=== PATIENT | female | born 1935 | race Caucasian/White ===

== ENCOUNTER 2017-04-15 08:54 | Inpatient (IN) | payer OTHER ==
[2017-03-21 12:29] VITALS: BMI 40.0
--- NOTE | 2017-03-21 13:20 | PAT Medication Instructions ---
Service Date Mar 21, 2017. Current Home Medication List Acetaminophen (Tylenol), 1,000 MG PO PRN Allopurinol (Zyloprim), 100 MG PO QAM Aspirin (Aspirin Ec), 81 MG PO QAM Cholecalciferol (Vitamin D3), 5,000 UNITS PO QAM Fexofenadine Hcl (Leticia Allergy), 1 TAB PO PRN Fluticasone Propionate (Nasal) (Flonase Allergy Relief), 2 SPRAYS AMOS BID Loperamide Hcl (Imodium), 2 MG PO PRN Magnesium Oxide (Mag-Ox), 400 MG PO QAM Metoprolol Succinate (Toprol Xl), 25 MG PO BID Mirtazapine Soltab (Remeron Soltab), 45 MG PO HS Multivitamin (Multivitamin), 1 TAB PO QAM Ocuvite Preservision (Ocuvite Preservision), 1 TAB PO QAM Pantoprazole (Protonix), 40 MG PO QAM Quetiapine Fumarate Xr (Seroquel Xr), 200 MG PO HS Sertraline (Zoloft), 150 MG PO QAM Trandolapril (Mavik), 4 MG PO BID Verapamil Sust Rel (Calan Sr Ext Rel), 240 MG PO QAM Zolpidem Tartrate (Ambien), 10 MG PO HS [Iron], 1 TAB PO QAM Medication Instructions For Your Scheduled Surgery - Hold the following medications the morning of surgery: [Iron], 1 TAB PO QAM Multivitamin (Multivitamin), 1 TAB PO QAM Ocuvite Preservision (Ocuvite Preservision), 1 TAB PO QAM Loperamide Hcl (Imodium), 2 MG PO PRN Magnesium Oxide (Mag-Ox), 400 MG PO QAM Cholecalciferol (Vitamin D3), 5,000 UNITS PO QAM Fexofenadine Hcl (Leticia Allergy), 1 TAB PO PRN Trandolapril (Mavik), 4 MG PO BID - Take the following medications the morning of surgery with a sip of water: Verapamil Sust Rel (Calan Sr Ext Rel), 240 MG PO QAM Sertraline (Zoloft), 150 MG PO QAM Pantoprazole (Protonix), 40 MG PO QAM Metoprolol Succinate (Toprol Xl), 25 MG PO BID Fluticasone Propionate (Nasal) (Flonase Allergy Relief), 2 SPRAYS AMOS BID Acetaminophen (Tylenol), 1,000 MG PO PRN (if needed) Allopurinol (Zyloprim), 100 MG PO QAM Aspirin (Aspirin Ec), 81 MG PO QAM - Hold the following medications as scheduled the night before surgery: Trandolapril (Mavik), 4 MG PO BID - Take the following medications as scheduled the night before surgery: Zolpidem Tartrate (Ambien), 10 MG PO HS Quetiapine Fumarate Xr (Seroquel Xr), 200 MG PO HS Mirtazapine Soltab (Remeron Soltab), 45 MG PO HS. Metoprolol Succinate (Toprol Xl), 25 MG PO BID Loperamide Hcl (Imodium), 2 MG PO PRN (if needed) Fluticasone Propionate (Nasal) (Flonase Allergy Relief), 2 SPRAYS AMOS BID Acetaminophen (Tylenol), 1,000 MG PO PRN (if needed) If you have any questions please call us at [phone] or [phone] or [phone]
[2017-03-21 14:48] LABS: BASO % 0.5 %; BASO ABS # 0.04 K/uL (0-0.2); COMPLETE YES; EOS % 5.2 %; HEMATOCRIT 35.8 % (37-47); IG% 0.1 %; LYMPH ABS # 3.12 K/uL (1.2-3.4); MEAN CELL VOLUME 86.1 fL (80-100); MEAN CORPUSCULAR HEMOGLOBIN 29.3 pg (25-34); MEAN CORPUSCULAR HGB CONC 34.1 g/dl (32-36); MEAN PLATELET VOLUME 8.6 fL (7.4-10.4); MONO % 9.6 %; NEUT % 42.6 %; PLATELET COUNT 184 K/uL (130-400); RED BLOOD COUNT 4.16 M/uL (4.2-5.4); WHITE BLOOD COUNT 7.43 K/uL (4.8-10.8)
[2017-03-21 15:05] LABS: BUN/CREATININE RATIO 36.7 (10-20); POTASSIUM 4.7 mmol/L (3.5-5.1)
[2017-03-21 15:24] LABS: URINE APPEARANCE CLEAR (CLEAR); URINE BILIRUBIN NEG (NEG); URINE COLOR YELLOW; URINE NITRITE NEG (NEG); URINE SPECIFIC GRAVITY 1.025 (1.000-1.030); UROBILINOGEN NEG (NEG); ZZUR CULT IF INDIC CLEAN CATCH NO
[2017-03-21 15:36] LABS: MANUAL MICROSCOPIC REQUIRED? NO; REVIEW REQ? NO
[2017-04-15] VITALS (8 sets, daily range): BP systolic 131–177; BP diastolic 54–93; PULSE 63–72; TEMP 36.4–36.7; O2SAT 95–98; Ht 162.6 cm; Wt 107.3 kg
[~2017-04-15] VITALS: Ht 162.6 cm; Wt 107.3 kg
[~2017-04-15 08:54] MED LIST: ACET-1256 PO; ALLO100T PO; ASPI81TA28 PO; CEFAZOLIN 2000 MG/60 ML D5W 60 ML IV SCH; CHOL1000 PO; FEXO1TAB49 PO; FLUT0.15 NAE; IMD/2 PO; IRON PO; LACTATED RINGER'S 1000ML 1,000 ML IV SCH; MAGN400T6 PO; METO25TA3 PO; MIRT15TA2 PO; MULT-190 PO; MULT-506 PO; PANT40TA PO; QUET200T2 PO; SERT50TA PO; TRAN4TAB11 PO; VERA240T20 PO; ZOLP10TA PO
[2017-04-15] MEDS ORDERED: MoRPHine SULFATE 10 MG/ML CARP/VIAL IV PRN (09:45)
[2017-04-15] MEDS ORDERED: NALOXONE HCL 0.4 MG/1 ML VIAL/CARP IV PRN ×3 (09:45→13:45)
[2017-04-15] MEDS ORDERED: FLUMAZENIL 0.1 MG/1 ML 10 ML VIAL IV PRN (09:45)
[2017-04-15] MEDS ORDERED: ATROPINE SULFATE 0.1 MG/ML 5ML SYR IV PRN (09:45)
[2017-04-15] MEDS ORDERED: ONDANSETRON INJ 2 MG/ML 2 ML VIAL IV PRN ×2 (09:45→13:45)
[2017-04-15] MEDS ORDERED: PHENYLEPHRINE 100MCG/ML 5ML SYR IV PRN (09:45)
[2017-04-15] MEDS ORDERED: LABETALOL HCL IV 5 MG/ML 20ML IV PRN (09:45)
[2017-04-15] MEDS ORDERED: MEPERIDINE HCL 25 MG/ML CARP IV PRN (09:45)
[2017-04-15] MEDS ORDERED: EpHEDrine SULFATE INJ 50 MG/ML AMP IV PRN (09:45)
--- NOTE | 2017-04-15 11:10 | History & Physical Bridge Note ---
H&P Re-Evaluation Bridge Note: I have examined the patient, reviewed the History & Physical and in the interval since the performance of the History & Physical I have noted the following changes of clinical significance: No changes noted
--- NOTE | 2017-04-15 11:11 | History and Physical ---
History & Physical Date Apr 15, 2017. Chief Complaint Back and leg pain History of Present Illness The patient is a 81 year old female with complaints of chronic back and leg pain Additional History Hepatic Disease: No Endocrine Disorder: No Kidney Disease: No Hypertension: Yes Heart Disease: No Bleeding Tendencies: No Infectious Diseases: No Allergies Coded Allergies: Influenza Vaccines (Verified Allergy, Unknown, PRICKLING FINGERS, 04/15/17) Paroxetine (Verified Allergy, Unknown, FACE AND EARS BURNED, 03/21/17) Penicillins (Verified Allergy, Unknown, PENICILLIN/AMOXICILLIN-DIARRHEA, ) Pregabalin (Verified Allergy, Unknown, DEPRESSION, 03/21/17) Statins (Verified Allergy, Unknown, MUSCLE ACHES, 03/21/17) Sulfa Drugs (Verified Allergy, Unknown, BACTRIM-THROAT AND TONGUE SWELLING , 03/21/17) Unclassified Drugs (Verified Allergy, Unknown, MUSCLE RELAXANT-NAME? IMPAIRED KIDNEY FUNCTION PER PT, 03/21/17) 09/2016 AFTER HIP [facility] Home Medications Scheduled Acetaminophen (Tylenol), 1,000 MG PO PRN Allopurinol (Zyloprim), 100 MG PO QAM Aspirin (Aspirin Ec), 81 MG PO QAM Cholecalciferol (Vitamin D3), 5,000 UNITS PO QAM Fexofenadine Hcl (Leticia Allergy), 1 TAB PO PRN Fluticasone Propionate (Nasal) (Flonase Allergy Relief), 2 SPRAYS AMOS BID Loperamide Hcl (Imodium), 2 MG PO PRN Magnesium Oxide (Mag-Ox), 400 MG PO QAM Metoprolol Succinate (Toprol Xl), 25 MG PO BID Mirtazapine Soltab (Remeron Soltab), 45 MG PO HS Multivitamin (Multivitamin), 1 TAB PO QAM Ocuvite Preservision (Ocuvite Preservision), 1 TAB PO QAM Pantoprazole (Protonix), 40 MG PO QAM Quetiapine Fumarate Xr (Seroquel Xr), 200 MG PO HS Sertraline (Zoloft), 150 MG PO QAM Trandolapril (Mavik), 4 MG PO BID Verapamil Sust Rel (Calan Sr Ext Rel), 240 MG PO QAM Zolpidem Tartrate (Ambien), 10 MG PO HS [Iron], 1 TAB PO QAM Physical Examination Skin: warm/dry, no rash Eyes: normal inspection, EOMI, sclerae normal ENT: normal ENT inspection, pharynx normal Head: normocephalic, atraumatic Neck: supple, no adenopathy, trachea midline Respiratory/Chest: lungs clear, normal breath sounds, no respiratory distress Cardiovascular: regular rate, rhythm, no edema, no murmur Abdomen / GI: normal bowel sounds, non tender Back: normal inspection Extremities: normal inspection, normal range of motion Neurologic/Psych: no motor/sensory deficits, alert, normal reflexes, oriented x 3 Diagnosis Lumbar spinal stenosis Plan of Treatment Lumbar decompression and fusion L4 5 L5-S1
[2017-04-15] MEDS ORDERED: FENTANYL CITRATE INJ 50 MCG/1 ML 2 ML VIAL ONE ×4 (11:15→14:01)
[2017-04-15] MEDS ORDERED: BACITRACIN 50000 UNIT VIAL ONE (11:44)
[2017-04-15] MEDS ORDERED: BUPIVACAINE/EPINEPHRINE 0.5% MPF 1:200,000 30 ML VIAL ONE (11:44)
[2017-04-15] MEDS ORDERED: HYDROmorphone INJ 2 MG/ML SYR/VIAL ONE ×2 (12:15→13:48)
[2017-04-15] MEDS ORDERED: ALBUMIN HUMAN 5% 12.5 GM/250 ML VIAL IV ONE (13:26)
[2017-04-15] MEDS ORDERED: FLOSEAL HEMOSTATIC MATRIX 10ML TOP ONE (13:34)
[2017-04-15] MEDS ORDERED: SODIUM CHLORIDE 0.9% 1000ML 1,000 ML IV SCH (13:43)
[2017-04-15] MEDS ORDERED: DO NOT ADMINISTER PNEUMOCOCCAL VACCINE PRN ×2 (13:45)
[2017-04-15] MEDS ORDERED: DO NOT ADMINISTER FLU VACCINE PRN ×3 (13:45)
[2017-04-15] MEDS ORDERED: FAMOTIDINE 20 MG TAB PO PRN (13:45)
[2017-04-15] MEDS ORDERED: BISACODYL 10 MG SUPP PR PRN (13:45)
[2017-04-15] MEDS ORDERED: LORAZEPAM INJ 0.5 MG in SYRINGE 0.75 ML IV PRN (13:45)
[2017-04-15] MEDS ORDERED: ACETAMINOPHEN 500 MG TAB PO PRN (13:45)
[2017-04-15] MEDS ORDERED: PROMETHAZINE HCL INJ 12.5 MG in SODIUM CHLORIDE 0.9% 50ML 50 ML IV PRN (13:45)
[2017-04-15] MEDS ORDERED: ALUMINUM/MAGNESIUM SUSP 30 ML UDC PO PRN (13:45)
[2017-04-15] MEDS ORDERED: MAGNESIUM HYDROXIDE SUSP 30 ML UDC PO PRN (13:45)
[2017-04-15] MEDS ORDERED: SOD PHOSPHATE/SOD BIPHOSPHATE ENEMA 132 ML BTL PR PRN (13:45)
[2017-04-15] MEDS ORDERED: METOCLOPRAMIDE HCL INJ 5 MG/ML 2 ML VIAL IV PRN (13:45)
[2017-04-15] MEDS ORDERED: ACETAMINOPHEN IV 100 ML IV PRN (13:45)
[2017-04-15] MEDS ORDERED: hydrOXYzine HCL 25 MG TAB PO PRN (13:45)
[2017-04-15] MEDS ORDERED: PROPOFOL IV EMULSION 10 MG/ML 20 ML VIAL IV ONE (13:48)
[2017-04-15] MEDS ORDERED: LIDOCAINE HCL 2% 2 ML VIAL (20MG/ML) ONE (13:48)
[2017-04-15] MEDS ORDERED: ROCURONIUM BROMIDE 10 MG/ML 5 ML VIAL IV ONE (13:48)
[2017-04-15] MEDS ORDERED: EpHEDrine SULFATE 50MG/5ML SYR ONE (13:51)
[2017-04-15] MEDS ORDERED: GLYCOPYRROLATE INJ 0.2 MG/ML VIAL ONE (13:51)
[2017-04-15] MEDS ORDERED: EpHEDrine SULFATE INJ 50 MG/ML AMP ONE (13:51)
[2017-04-15] MEDS ORDERED: ONDANSETRON INJ 2 MG/ML 2 ML VIAL ONE (13:51)
[2017-04-15] MEDS ORDERED: NEOSTIGMINE METHYLSULFATE 1 MG/ML 10ML VIAL ONE (13:51)
[2017-04-15] MEDS ORDERED: DEXAMETHASONE SOD INJ 4 MG/ML VIAL ONE (13:51)
--- NOTE | 2017-04-15 13:51 | [facility] Operative Report ---
Operative Report Operative Date Apr 15, 2017. Pre-Operative Diagnosis Lumbar Spinal Stenosis Post-Operative Diagnosis Lumbar Spinal Stenosis. Procedure(s) Performed #1 revision decompression medial facetectomy foraminotomies L3 4 L4 5 L5-S1. #2 posterior spinal fusion L4 5 L5-S1. #3 posterior instrumentation L4 5 L5-S1. #4 placement of locally harvested morcellized autograft in the posterior lateral gutters. #5 casement of ostial amp in the posterior lateral gutters. Surgeon Internal Recruiter Surgeon(s) Fariba Thompson PA-C Estimated Blood Loss 650 ml Findings Severe spinal stenosis Specimens None per surgeon Description of Procedure Patient was met with preoperatively case discussed all questions are dressed. After informed consent patient was taken to the operative suite and intubated and placed in a prone position on the Ap table on top Nicholas frame. All bony prominences and eyes well-padded ensure there is no external pressure. Lumbar spines and prepped and draped nostril fashion. Sharp dissection with the assistance of Bovie cautery was performed onto an exposing the remaining lamina and transverse processes of L45 and the sacral alar bilaterally. From a caudal to cephalad fashion revision complete laminectomy of L5 L4 and partial laminectomy of L3 was performed addressing severe lateral recess and foraminal stenosis. After this complete pedicle screws were placed in L4-L5 and S1 levels bilaterally with the assistance of fluoroscopy. The purposes jacob locked in position. The transverse processes of L4-L5 and sacral alar were then burred to subcortical bleeding bone. Ostial amp local harvested morcellized autograft was placed in the posterior gutters. 15 round STUART drain inserted. Incision was closed with 1 Vicryl fascia 2-0 Vicryl subcutaneously and 4 Monocryl for final skin closure. Steri-Strips sterile dressing placed. Patient we can taken to PACU stable condition. Please note Fariba Mcintyre was present at the entire procedure involved in patient positioning complex portions of surgery and final skin closure. I attest to the content of the Intraoperative Record and any orders documented therein. Any exceptions are noted below.
[2017-04-15 13:52] LABS: HEMATOCRIT 30.9 % (37-47)
[2017-04-15] MEDS ORDERED: METOPROLOL TARTRATE 1 MG/ML VIAL ONE (13:52)
[2017-04-15] MEDS ORDERED: LABETALOL HCL IV 5 MG/ML 20ML IV ONE (14:10)
[2017-04-15] MEDS ORDERED: HYDROmorphone HCL 0.5MG/ML 50 ML CASSETTE ONE (14:20)
[2017-04-15] MEDS: HYDROmorphone INJ 1 MG/ML SYR IV PRN ×2 (14:25→14:30)
--- NOTE | 2017-04-15 14:41 | DIAGNOSTIC IMAGING REPORT ---
Radiology LUMBAR SPINE 2 OR 3 VIEW CLINICAL HISTORY: 81 years-old Female presenting with L4-S1 DECOMPRESSION/FUSION. TECHNIQUE: 2 fluoroscopic spot image(s) obtained as part of an intraoperative procedure. COMPARISON: None. FINDINGS/IMPRESSION: Posterior transpedicular screw and jacob fixation of L4-S1. Grossly normal anatomic alignment. Please see surgical report for further details. Fluoroscopy dosage (mGy): Not available. Fluoroscopy time: 19 seconds. Number of fluoroscopic spot images: 2. Electronically signed by: Andrei Adrian M.D. 04/15/2017 2:40 PM Dictated Date/Time: 04/15/2017 2:39 PM
--- NOTE | 2017-04-15 14:49 | Anesthesiology Progress Note ---
Anesthesia Post Op Note Date & Time Apr 15, 2017 at 14:48 Vital Signs Pain Intensity: 3 Vital Signs Past 12 Hours Date Time Temp Pulse Resp B/P (MAP) Pulse Ox O2 Delivery O2 Flow Rate FiO2 04/15/17 14:10 37.2 77 16 157/77 99 Oxymask 10 04/15/17 09:05 36.4 71 20 177/93 04/15/17 09:05 97 Room Air Notes Mental Status: alert / awake / arousable, participated in evaluation Pt Amnestic to Procedure: Yes Nausea / Vomiting: adequately controlled Pain: adequately controlled Airway Patency, RR, SpO2: stable & adequate BP & HR: stable & adequate Hydration State: stable & adequate Anesthetic Complications: no major complications apparent The patient did well. She is awake and treating her pain with an IV COAL HAULER OPERATOR. Her vitals are all stable. Her postop hgb is 9.9. Dr. Snyder is aware and will follow her overnight.
[2017-04-15] MEDS: SODIUM CHLORIDE 0.9% 1000ML 1,000 ML IV SCH ×2 (15:45→20:11)
[2017-04-15] MEDS: HYDROmorphone HCL 0.5MG/ML 50 ML CASSETTE IV PRN ×2 (16:27→23:23)
[2017-04-15] MEDS: CEFAZOLIN IV 2,000 MG in DEXTROSE 5% 50ML 50 ML IV SCH (20:08)
[2017-04-15] MEDS: DOCUSATE SODIUM/SENNA 50/8.6MG TAB PO SCH (21:00)
[2017-04-15] MEDS: ZOLPIDEM TARTRATE 10 MG TAB PO SCH (21:00)
[2017-04-15] MEDS: FLUTICASONE PROPIONATE NA SPR 16 GM BTL NAE SCH (21:39)
[2017-04-15] MEDS: METOPROLOL SUCC 25MG EXT REL TAB PO SCH (21:42)
[2017-04-15] MEDS: DEXAMETHASONE INJ 6 MG in SYRINGE 0 ML IV SCH (21:43)
[2017-04-15] MEDS: QUETIAPINE FUMARATE 200 MG TABCR PO SCH (21:43)
[2017-04-16] VITALS (7 sets, daily range): BP systolic 112–159; BP diastolic 61–70; PULSE 70–88; TEMP 36.4–37.1; O2SAT 92–97
[2017-04-16] MEDS: SODIUM CHLORIDE 0.9% 1000ML 1,000 ML IV SCH (02:35)
[2017-04-16] MEDS: CEFAZOLIN IV 2,000 MG in DEXTROSE 5% 50ML 50 ML IV SCH (04:00)
[2017-04-16] MEDS: DEXAMETHASONE INJ 6 MG in SYRINGE 0 ML IV SCH ×2 (05:30→14:19)
[2017-04-16 05:55] LABS: BASO % 0.1 %; BASO ABS # 0.01 K/uL (0-0.2); COMPLETE YES; HEMATOCRIT 27.9 % (37-47); IG% 0.3 %; LYMPH % 13.9 %; LYMPH ABS # 1.51 K/uL (1.2-3.4); MEAN CELL VOLUME 86.6 fL (80-100); MEAN CORPUSCULAR HEMOGLOBIN 28.9 pg (25-34); MEAN CORPUSCULAR HGB CONC 33.3 g/dl (32-36); MEAN PLATELET VOLUME 8.4 fL (7.4-10.4); MONO % 7.8 %; NEUT % 77.9 %; PLATELET COUNT 155 K/uL (130-400); RED BLOOD COUNT 3.22 M/uL (4.2-5.4); WHITE BLOOD COUNT 10.87 K/uL (4.8-10.8)
[2017-04-16] MEDS ORDERED: DC PCA ONE (06:00)
[2017-04-16] MEDS ORDERED: HYDROmorphone INJ 0.5 MG/0.5 ML SYR IV PRN (06:00)
[2017-04-16] MEDS ORDERED: NURSING VERBAL MED ORDER ONE ×2 (06:15→08:15)
[2017-04-16 06:29] LABS: BUN/CREATININE RATIO 23.4 (10-20); CALCIUM 7.9 mg/dl (8.5-10.1); CREATININE 1.1 mg/dl (0.60-1.20); POTASSIUM 4.9 mmol/L (3.5-5.1)
--- NOTE | 2017-04-16 08:03 | Clinical Documentation Query ---
KULDEEP Perez : CLINICAL DOCUMENTATION QUERIES QUERY 1 OF 3 Patient is a 81 year old female admitted for elective lumbosacral decompression and fusion. Preoperative hemoglobin and hematocrit were 12.2 g/dl and 35.8%. POD #1, repeat values are 9.3 g/dl and 27.9%. EBL for the procedure was 650 ml's with subsequently documented losses totaling an additional 47i0 ml's to date. Additionally, net I/O is positive for 2,793 ml's as of this a.m. She is being monitored with serial hematology and I/O including drain outputs. In your clinical opinion is this patient being managed for: ( ) Acute blood loss and hemodilutional anemia ( ) Not Agree ( ) Other explanation of clinical findings (Please Explain) ( ) Unable to determine (Please Define) ( ) Need to Discuss The medical record reflects the following clinical findings, treatment, and risk factors. Clinical Indicators: As above Treatment: She is being monitored with serial hematology and I/O including drain outputs. Risk Factors: Surgery, perioperative blood losses. QUERY 2 OF 3 BMI noted to be 40.6 kg/m*m. In order for this clinical data to be captured by the commercial lines manager, an associated clinical diagnosis must exist within the medical record. Please clarify as clinically appropriate. Thank you. In your clinical opinion is your patient: ( ) Morbidly obese, BMI 40.6 kg/m*m ( ) Not Agree ( ) Other explanation of clinical findings (Please Explain) ( ) Unable to determine (Please Define) ( ) Need to Discuss The medical record reflects the following clinical findings, treatment, and risk factors. Clinical Indicators: As above Treatment: n/a Risk Factors: Caloric intake > expenditure QUERY 3 OF 3 H&P states PMH to include only hypertension. However, medication reconciliation lists the following: Acetaminophen (Tylenol), 1,000 MG PO PRN Allopurinol (Zyloprim), 100 MG PO QAM Aspirin (Aspirin Ec), 81 MG PO QAM Cholecalciferol (Vitamin D3), 5,000 UNITS PO QAM Fexofenadine Hcl (Leticia Allergy), 1 TAB PO PRN Fluticasone Propionate (Nasal) (Flonase Allergy Relief), 2 SPRAYS AMOS BID Loperamide Hcl (Imodium), 2 MG PO PRN Magnesium Oxide (Mag-Ox), 400 MG PO QAM Metoprolol Succinate (Toprol Xl), 25 MG PO BID Mirtazapine Soltab (Remeron Soltab), 45 MG PO HS Multivitamin (Multivitamin), 1 TAB PO QAM Ocuvite Preservision (Ocuvite Preservision), 1 TAB PO QAM Pantoprazole (Protonix), 40 MG PO QAM Quetiapine Fumarate Xr (Seroquel Xr), 200 MG PO HS Sertraline (Zoloft), 150 MG PO QAM Trandolapril (Mavik), 4 MG PO BID Verapamil Sust Rel (Calan Sr Ext Rel), 240 MG PO QAM Zolpidem Tartrate (Ambien), 10 MG PO HS [Iron], 1 TAB PO QAM Please clarify as appropriate to add additional severity of illness and risk of mortality to the record of your patient. Thank you. In your clinical opinion is this patient being managed for: ( ) Gout, osteoporosis, GERD, depression, specified heart disease ( ) Not Agree ( ) Other explanation of clinical findings (Please Explain) ( ) Unable to determine (Please Define) ( ) Need to Discuss The medical record reflects the following clinical findings, treatment, and risk factors. Clinical Indicators: As above Treatment: As above Risk Factors: Age, gender Please clarify and document your clinical opinion in the progress notes and discharge summary. Terms such as "probable", "suspected", "likely", "questionable", "possible", or "still to be ruled out" are acceptable. IF IN AGREEMENT, YOU MUST DOCUMENT ABOVE DIAGNOSTIC STATEMENT IN DAILY PROGRESS NOTES AND DISCHARGE SUMMARY. This document is not part of the patient's record. Thank You, Otis Falcon, ROMMEL [phone]
--- NOTE | 2017-04-16 08:09 | Anesthesiology Progress Note ---
Anesthesia Post Op Note Date & Time Apr 16, 2017 at 08:09 Vital Signs Vital Signs Past 12 Hours Date Time Temp Pulse Resp B/P (MAP) Pulse Ox O2 Delivery O2 Flow Rate FiO2 04/16/17 07:56 Room Air 04/16/17 07:32 36.6 84 16 148/70 (96) 97 Room Air 04/16/17 05:30 88 94 Room Air 04/16/17 02:45 36.4 82 18 152/68 (96) 96 Nasal Cannula 4.0 04/15/17 23:45 Nasal Cannula 4.0 04/15/17 22:58 36.4 72 17 145/73 (97) 97 Nasal Cannula 4.0 Notes Mental Status: alert / awake / arousable, participated in evaluation Pt Amnestic to Procedure: Yes Nausea / Vomiting: adequately controlled Pain: adequately controlled Airway Patency, RR, SpO2: stable & adequate BP & HR: stable & adequate Hydration State: stable & adequate Anesthetic Complications: no major complications apparent
--- NOTE | 2017-04-16 08:26 | Progress Note ---
Progress Note Date of Service Apr 16, 2017. Progress Note Back pain well controlled. Leg symptoms improved. She is inflated about the room without difficulty. Vital signs are stable. STUART drain decreasing appropriate. Good strength testing. Assessment status post, depression fusion replant this time initiate physical therapy advance her bowel regimen anticipate possible discharge to [facility] in the next day or so.
[2017-04-16] MEDS: VERAPAMIL HCL 240 MG TABCR PO SCH (08:36)
[2017-04-16] MEDS: FLUTICASONE PROPIONATE NA SPR 16 GM BTL NAE SCH ×2 (08:36→21:05)
[2017-04-16] MEDS: METOPROLOL SUCC 25MG EXT REL TAB PO SCH ×2 (08:37→21:05)
[2017-04-16] MEDS: ASPIRIN 81 MG ECTAB PO SCH (08:37)
[2017-04-16] MEDS: PANTOprazole SOD 40 MG TAB PO SCH (08:37)
[2017-04-16] MEDS: MAGNESIUM OXIDE 400 MG TAB PO SCH (08:37)
[2017-04-16] MEDS: CEROVITE ADV FORMULA TAB PO SCH (08:37)
[2017-04-16] MEDS: SERTRALINE HCL 100 MG TAB PO SCH (08:38)
[2017-04-16] MEDS: ALLOPURINOL 100 MG TAB PO SCH (08:38)
[2017-04-16] MEDS: OXYCODONE HCL IR 5 MG TAB (IMMEDIATE RELEASE) PO PRN ×3 (08:39→19:47)
[2017-04-16] MEDS: MAVIK PO SCH (21:05)
[2017-04-16] MEDS: ZOLPIDEM TARTRATE 10 MG TAB PO SCH (21:05)
[2017-04-16] MEDS: QUETIAPINE FUMARATE 200 MG TABCR PO SCH (21:53)
[2017-04-16] MEDS: DOCUSATE SODIUM/SENNA 50/8.6MG TAB PO SCH (21:53)
[2017-04-17] MEDS: POLYETHYLENE (MIRALAX) 17 GM PACK PO SCH ×2 (05:18→12:52)
[2017-04-17 05:53] VITALS: BP 119/61; PULSE 75; TEMP 36.9; O2SAT 93
[2017-04-17 07:18] VITALS: BP 127/66; PULSE 65; TEMP 36.9; O2SAT 94
[2017-04-17] MEDS ORDERED: RXC5 PO (07:36)
--- NOTE | 2017-04-17 07:37 | Discharge Instructions ---
Discharge Instructions Date of Service Apr 17, 2017. Admission Reason for Admission: Lumbar Spinal Stenosis Discharge Discharge Diagnosis / Problem: lumbar stenosis Discharge Goals Goal(s): Improve function Activity Recommendations Activity Limitations: per Instructions/Follow-up section . Instructions / Follow-Up Instructions / Follow-Up ACTIVITY RECOMMENDATIONS: SELF CARE INSTRUCTIONS AFTER THORACIC/LUMBAR FUSIONS 1. You may walk to your tolerance. It is good exercise for your legs and back. Expect some back and intermittent leg aches and pains. 2. You may perform "counter-top" level activities (make a sandwich, tre with a project, etc.). 3. No bending or lifting of more than 10 pounds or back twisting of any nature (roll like a log when turning in bed). 4. You may ride in a car for 20-30 minutes at a time. No driving until after your first visit with your doctor. 5. Frequent changes of position and restricting sitting to 30 minutes at a time will help limit the amount of back spasms and stiffness you may experience. 6. You may discontinue the use of ambulatory aids (cane, crutches, etc.) once your strength and confidence allow. 7. You may chaplain the shower and let water strike your incision when you arrive home at least once daily. Do not take a tub bath, sit in a hot tub or go into a swimming pool until after your first recheck in the office. SPECIAL CARE INSTRUCTIONS: VERY IMPORTANT TO READ AND REVIEW A. Your surgical incision has been closed with a cosmetic suture under the skin that will dissolve in about 6 weeks. In 14 days, you can use a pair of clean scissors and cut the suture that is left outside of the skin at the ends of your incision. 1. The small skin tapes can be removed 7 days after surgery if they have not fallen off by that point. 2. You may keep the wound open to air as much as possible to promote healing after post-op day number 5 unless told otherwise by your doctor. 3. If you think the wound looks like it is becoming infected (redness or worsening drainage) and/or you are experiencing fever, chill or worsening back pain and muscle spasms, contact the office so that we may evaluate you as soon as possible. B. Complications are uncommon, but please contact us if you have any signs or symptoms of: 1. wound infection (fever higher than 102.5 degrees F, redness, separation of wound, drainage, or increasing pain from the incision) 2. blood clots in legs (pain, swelling, redness and warmth in legs) 3. urinary tract infection (fever higher than 102.5 degrees F, burning upon urination or increased frequency of urination) 4. nerve problems (inability to walk on your toes or heels, numbness, loss of bowel or bladder control) 5. any other symptoms that concern you C. Please call the office at if you have any concerns or questions about your operation or recovery. D. No smoking! Smoking drastically decreases the chance of a solid fusion. E. Do not take any anti-inflammatory medications (Indocin, Advil, Motrin, Aspirin, Naprosyn, etc.) as these may inhibit the chance of a solid fusion. Tylenol is okay to take for pain. MANAGING PAIN AFTER SPINAL SURGERY 1. Narcotic medication is intended for short-term use and will be provided for surgical pain. Surgical pain usually lasts for a period of 4-6 weeks. Narcotic medication includes Percocet, Vicodin, Darvocet, Tylenol #3 or Lortab. 2. Longer-term pain is more appropriately treated with non-narcotic medication such as Tylenol ES. 3. Muscle spasm is not appropriately treated with narcotics. Muscle relaxers such as Soma, Flexeril or Skelaxin can be used along with Tylenol ES. 4. Remember that we all live with some "aches and pains". This is not unusual or uncommon after an injury or as we get older. a. Back pain is expected and may include muscle spasms for 4 to 6 weeks after surgery. The pain should gradually improve. If the pain worsens for no apparent reason, please contact the office. b. Intermittent leg pain may also be experienced and should not be concerned about unless it worsens for no apparent reason. If so, please contact the office. 5. We will provide appropriate medication within the normal guidelines of their prescribed use. We will also be very cautious and aware of potential abuse and extended duration of patients' medication needs. a. Pain medications are for your comfort and to assist with sleep and rest so that the tissue can heal. They are not provided in order to return to normal activity and should not be used through the day. To do so or worsening pain at night can result from ongoing tissue damage and development of tolerance to the prescribed medicine. 6. Please allow 2-3 days to process refills. Prescriptions will not be mailed but must be picked up at the office. FOLLOW UP VISIT: Keep your scheduled follow-up appointment. Any questions, please call the office at . Current Hospital Diet Patient's current hospital diet: Regular Diet Discharge Diet Recommended Diet: Regular Diet Procedures Procedures Performed: #1 revision decompression medial facetectomy foraminotomies L3 4 L4 5 L5-S1. #2 posterior spinal fusion L4 5 L5-S1. #3 posterior instrumentation L4 5 L5-S1. #4 placement of locally harvested morcellized autograft in the posterior lateral gutters. #5 casement of ostial amp in the posterior lateral gutters. Pending Studies Studies pending at discharge: no Medical Emergencies . Who to Call and When: Medical Emergencies: If at any time you feel your situation is an emergency, please call 911 immediately. . Non-Emergent Contact Non-Emergency issues call your: Primary Care Provider . "Provider Documentation" section prepared by El Snyder. . VTE Core Measure Inpt VTE Proph given/why not?: Ayaz Rutherford, SCD's
[2017-04-17 08:00] VITALS: O2SAT 94
[2017-04-17] MEDS: FLUTICASONE PROPIONATE NA SPR 16 GM BTL NAE SCH ×2 (08:27→20:57)
[2017-04-17] MEDS: ASPIRIN 81 MG ECTAB PO SCH (08:28)
[2017-04-17] MEDS: ALLOPURINOL 100 MG TAB PO SCH (08:28)
[2017-04-17] MEDS: PANTOprazole SOD 40 MG TAB PO SCH (08:28)
[2017-04-17] MEDS: CEROVITE ADV FORMULA TAB PO SCH (08:28)
[2017-04-17] MEDS: VERAPAMIL HCL 240 MG TABCR PO SCH (08:29)
[2017-04-17] MEDS: SERTRALINE HCL 100 MG TAB PO SCH (08:29)
[2017-04-17] MEDS: MAVIK PO SCH ×2 (08:30→20:57)
[2017-04-17] MEDS: MAGNESIUM OXIDE 400 MG TAB PO SCH (08:30)
[2017-04-17] MEDS: METOPROLOL SUCC 25MG EXT REL TAB PO SCH ×2 (10:16→20:57)
[2017-04-17] MEDS: OXYCODONE HCL IR 5 MG TAB (IMMEDIATE RELEASE) PO PRN ×2 (14:14→20:56)
--- NOTE | 2017-04-17 14:48 | Progress Note ---
Progress Note Date of Service Apr 17, 2017. Progress Note Patient is improving overall. Back pain is controlled. Prescription called burning" in the incisional region is controlled with medication. Vital signs are stable. Neurologically she is as good strength testing. Assessment status post lumbar decompression fusion at this time we will plan for discharge to [facility] in the a.m.
[2017-04-17 15:15] VITALS: BP 96/57; PULSE 68; TEMP 36.9; O2SAT 96
[2017-04-17] MEDS ORDERED: NURSING VERBAL MED ORDER ONE (17:45)
[2017-04-17] MEDS: DOCUSATE SODIUM/SENNA 50/8.6MG TAB PO SCH (20:46)
[2017-04-17 20:56] VITALS: BP 112/61
[2017-04-17] MEDS: QUETIAPINE FUMARATE 200 MG TABCR PO SCH (20:58)
[2017-04-17] MEDS: ZOLPIDEM TARTRATE 10 MG TAB PO SCH (21:03)
[2017-04-17 23:25] VITALS: BP 111/65; PULSE 64; TEMP 36.6; O2SAT 93
[2017-04-18 07:34] VITALS: BP 103/50; PULSE 59; TEMP 36.9; O2SAT 92
[2017-04-18 07:45] VITALS: O2SAT 96
[2017-04-18] MEDS: FLUTICASONE PROPIONATE NA SPR 16 GM BTL NAE SCH ×2 (08:36→21:06)
[2017-04-18 08:38] VITALS: BP 127/64; PULSE 72
[2017-04-18] MEDS: VERAPAMIL HCL 240 MG TABCR PO SCH (08:39)
[2017-04-18] MEDS: MAVIK PO SCH ×2 (08:39→21:07)
[2017-04-18] MEDS: ASPIRIN 81 MG ECTAB PO SCH (08:39)
[2017-04-18] MEDS: METOPROLOL SUCC 25MG EXT REL TAB PO SCH ×2 (08:39→21:08)
[2017-04-18] MEDS: SERTRALINE HCL 100 MG TAB PO SCH (08:40)
[2017-04-18] MEDS: ALLOPURINOL 100 MG TAB PO SCH (08:40)
[2017-04-18] MEDS: CEROVITE ADV FORMULA TAB PO SCH (08:40)
[2017-04-18] MEDS: MAGNESIUM OXIDE 400 MG TAB PO SCH (08:40)
[2017-04-18] MEDS: PANTOprazole SOD 40 MG TAB PO SCH (08:40)
--- NOTE | 2017-04-18 10:37 | Discharge Summary ---
Orthopedic Discharge Summary Admission Date/Reason Apr 15, 2017 at 11:30 Lumbar Spinal Stenosis. Discharge Date/Disposition Apr 18, 2017 alf facility Diagnosis Principal Diagnosis: Lumbar spinal stenosis Admission Physical Exam As per Admitting History & Physical. Hospital Course Patient underwent lumbar decompression and fusion tolerated this well as taken to the orthopedic floor postoperatively. Postoperative course she progressed appropriately with improvement of her leg symptoms back pain controlled. STUART drain decreased appropriately. Substernally she was discharged to rehabilitation. Discharge orders and instructions found the chart for further review. Discharge Instructions Please refer to the electronic Patient Visit Report (Discharge Instructions) for additional information.
[2017-04-18 11:15] VITALS: BP 127/64; PULSE 72; TEMP 36.9; O2SAT 96
[2017-04-18 15:55] VITALS: BP 130/66; PULSE 61; TEMP 36.6; O2SAT 97
[2017-04-18] MEDS: DOCUSATE SODIUM/SENNA 50/8.6MG TAB PO SCH (21:00)
[2017-04-18] MEDS: ZOLPIDEM TARTRATE 10 MG TAB PO SCH (21:06)
[2017-04-18] MEDS: QUETIAPINE FUMARATE 200 MG TABCR PO SCH (21:07)
[2017-04-18] MEDS: OXYCODONE HCL IR 5 MG TAB (IMMEDIATE RELEASE) PO PRN (21:09)
[2017-04-18 23:36] VITALS: BP 166/70; PULSE 81; TEMP 37.4; O2SAT 95
[2017-04-19] MEDS: MAVIK PO SCH ×2 (08:19→21:11)
[2017-04-19] MEDS: OXYCODONE HCL IR 5 MG TAB (IMMEDIATE RELEASE) PO PRN ×2 (08:19→21:10)
[2017-04-19] MEDS: FLUTICASONE PROPIONATE NA SPR 16 GM BTL NAE SCH ×2 (08:19→19:28)
[2017-04-19] MEDS: SERTRALINE HCL 100 MG TAB PO SCH (08:20)
[2017-04-19] MEDS: METOPROLOL SUCC 25MG EXT REL TAB PO SCH ×2 (08:20→21:12)
[2017-04-19] MEDS: VERAPAMIL HCL 240 MG TABCR PO SCH (08:20)
[2017-04-19] MEDS: CEROVITE ADV FORMULA TAB PO SCH (08:20)
[2017-04-19] MEDS: PANTOprazole SOD 40 MG TAB PO SCH (08:20)
[2017-04-19] MEDS: MAGNESIUM OXIDE 400 MG TAB PO SCH (08:20)
[2017-04-19] MEDS: ALLOPURINOL 100 MG TAB PO SCH (08:21)
[2017-04-19] MEDS: ASPIRIN 81 MG ECTAB PO SCH (08:21)
[2017-04-19 08:26] VITALS: BP 154/71; PULSE 85; TEMP 36.9; O2SAT 96
[2017-04-19] MEDS: MICONAZOLE NITRATE POWDER 43 GM EXT PRN (09:03)
--- NOTE | 2017-04-19 13:21 | Progress Note ---
Progress Note Date of Service Apr 19, 2017. Progress Note Patient notes some modest right sciatica. Is still markedly improved from her preoperative status. She is otherwise doing well ambulate with a walker. On exam she sitting in chair as good strength testing appears comfortable. Assessment status post lumbar decompression fusion per plan this time or waiting discharged to rehabilitation facility versus home.
--- NOTE | 2017-04-19 13:22 | Progress Note ---
Progress Note Date of Service Apr 18, 2017. Patient's back pain is controlled leg pain improved. She is currently waiting disposition.
[2017-04-19 15:45] VITALS: BP 102/51; PULSE 61; TEMP 37.1; O2SAT 96
[2017-04-19] MEDS: LORAZEPAM 0.5 MG TAB PO PRN (18:05)
[2017-04-19] MEDS: DOCUSATE SODIUM/SENNA 50/8.6MG TAB PO SCH (19:24)
[2017-04-19 21:07] VITALS: BP 145/61; PULSE 71
[2017-04-19] MEDS: ZOLPIDEM TARTRATE 10 MG TAB PO SCH (21:09)
[2017-04-19] MEDS: QUETIAPINE FUMARATE 200 MG TABCR PO SCH (21:11)
[2017-04-19 23:25] VITALS: BP 126/61; PULSE 79; TEMP 37.7; O2SAT 93
[2017-04-20] MEDS: LORAZEPAM 0.5 MG TAB PO PRN ×2 (07:56→23:08)
[2017-04-20] MEDS: OXYCODONE HCL IR 5 MG TAB (IMMEDIATE RELEASE) PO PRN (07:57)
[2017-04-20] MEDS: MICONAZOLE NITRATE POWDER 43 GM EXT PRN (08:00)
[2017-04-20] MEDS: ASPIRIN 81 MG ECTAB PO SCH (08:16)
[2017-04-20] MEDS: METOPROLOL SUCC 25MG EXT REL TAB PO SCH ×2 (08:16→21:41)
[2017-04-20] MEDS: CEROVITE ADV FORMULA TAB PO SCH (08:16)
[2017-04-20] MEDS: MAVIK PO SCH ×2 (08:16→21:38)
[2017-04-20] MEDS: ALLOPURINOL 100 MG TAB PO SCH (08:16)
[2017-04-20] MEDS: FLUTICASONE PROPIONATE NA SPR 16 GM BTL NAE SCH ×2 (08:16→21:38)
[2017-04-20] MEDS: MAGNESIUM OXIDE 400 MG TAB PO SCH (08:16)
[2017-04-20] MEDS: PANTOprazole SOD 40 MG TAB PO SCH (08:17)
[2017-04-20] MEDS: VERAPAMIL HCL 240 MG TABCR PO SCH (08:17)
[2017-04-20] MEDS: SERTRALINE HCL 100 MG TAB PO SCH (08:17)
[2017-04-20 08:20] VITALS: BP 130/60; PULSE 87; TEMP 36.9; O2SAT 93
--- NOTE | 2017-04-20 08:32 | Progress Note ---
Progress Note Date of Service Apr 20, 2017. Progress Note Patient still continues to struggle with transfers and ambulation. She gets occasional spasms in the right hamstring region. On physical exam vital signs are stable. She sitting so the bed. She has no tension signs straight-leg raising. She is excellent strength testing. Assessment status post lumbar depression fusion replant this time in light of her regarding mobilization and transverse processes still encourage her to go to rehabilitation setting. We' ll continue to wait for a bed. Intramedullary we'll give her Decadron today and possibly tomorrow.
[2017-04-20] MEDS: DEXAMETHASONE INJ 8 MG in SYRINGE 0 ML IV SCH (10:41)
[2017-04-20 15:00] VITALS: BP 124/62; PULSE 69; TEMP 37; O2SAT 92
[2017-04-20] MEDS: DOCUSATE SODIUM/SENNA 50/8.6MG TAB PO SCH (21:00)
[2017-04-20 21:35] VITALS: BP 141/56; PULSE 77
[2017-04-20] MEDS: ZOLPIDEM TARTRATE 10 MG TAB PO SCH (21:37)
[2017-04-20] MEDS: QUETIAPINE FUMARATE 200 MG TABCR PO SCH (21:38)
[2017-04-20 23:28] VITALS: BP 143/62; PULSE 70; TEMP 37.1; O2SAT 92
[2017-04-21] MEDS: OXYCODONE HCL IR 5 MG TAB (IMMEDIATE RELEASE) PO PRN ×3 (02:02→12:58)
[2017-04-21 06:30] VITALS: BP 118/55; PULSE 66; TEMP 36.4; O2SAT 97
[2017-04-21] MEDS: MICONAZOLE NITRATE POWDER 43 GM EXT PRN (07:20)
[2017-04-21] MEDS: MAGNESIUM OXIDE 400 MG TAB PO SCH (07:31)
[2017-04-21] MEDS: FLUTICASONE PROPIONATE NA SPR 16 GM BTL NAE SCH (07:31)
[2017-04-21] MEDS: MAVIK PO SCH (07:31)
[2017-04-21] MEDS: SERTRALINE HCL 100 MG TAB PO SCH (07:32)
[2017-04-21] MEDS: ALLOPURINOL 100 MG TAB PO SCH (07:32)
[2017-04-21] MEDS: PANTOprazole SOD 40 MG TAB PO SCH (07:32)
[2017-04-21] MEDS: METOPROLOL SUCC 25MG EXT REL TAB PO SCH (07:32)
[2017-04-21] MEDS: ASPIRIN 81 MG ECTAB PO SCH (07:32)
[2017-04-21] MEDS: VERAPAMIL HCL 240 MG TABCR PO SCH (07:32)
[2017-04-21] MEDS: CEROVITE ADV FORMULA TAB PO SCH (07:32)
[2017-04-21] MEDS: DEXAMETHASONE INJ 8 MG in SYRINGE 0 ML IV SCH (07:51)
[2017-04-21 08:44] VITALS: BP 114/55
[2017-04-21 10:37] VITALS: BP 118/55; PULSE 66; TEMP 36.4; O2SAT 97
--- NOTE | 2017-04-21 13:28 | Discharge Summary ---
Orthopedic Discharge Summary Admission Date/Reason Apr 15, 2017 at 11:30 Lumbar Spinal Stenosis. Discharge Date/Disposition Apr 21, 2017 [facility] facility Diagnosis Principal Diagnosis: Lumbar spinal stenosis Admission Physical Exam As per Admitting History & Physical. Hospital Course Patient underwent lumbar decompression fusion tolerated this well and taken to the orthopedic floor postop we. Postoperative leash progressed appropriately albeit slowly. She did have marked improvement in her back and leg symptoms but did require significant OT and PT assistance to about the week. She progressed appropriately substernally discharge to rehabilitation facility. Discharge orders and instructions found on the chart for further review. Discharge Instructions Please refer to the electronic Patient Visit Report (Discharge Instructions) for additional information.
== END 2017-04-21 13:25 | DRG 460 ==
LOC: C.ACU 08:54 → C.3E 11:30 → ENRESERV 14:43
PROVIDERS: ADMIT Orthopaedic Surgery Orthopaedic Surgery of the Spine; ATTEND Orthopaedic Surgery Orthopaedic Surgery of the Spine
PROC: 01NB0ZZ Release Lumbar Nerve, Open Approach (ICD-10-PCS; principal; 2017-04-15 11:45)
PROC: 0SG30Z1 (ICD-10-PCS; principal; 2017-04-15 11:45)
PROC: 0SG00Z1 (ICD-10-PCS; principal; 2017-04-15 11:45)
DX: M48.06 Spinal stenosis, lumbar region (principal); Z68.41 Body mass index [BMI] 40.0-44.9, adult; I12.9 Hypertensive chronic kidney disease with stage 1 through stage 4 chronic kidney disease, or unspecified chronic kidney disease; N18.2 Chronic kidney disease, stage 2 (mild); I25.10 Atherosclerotic heart disease of native coronary artery without angina pectoris; D64.9 Anemia, unspecified; E79.0 Hyperuricemia without signs of inflammatory arthritis and tophaceous disease; F32.9 Major depressive disorder, single episode, unspecified; F41.9 Anxiety disorder, unspecified; K21.9 Gastro-esophageal reflux disease without esophagitis; M81.0 Age-related osteoporosis without current pathological fracture; E66.01 Morbid (severe) obesity due to excess calories; Z86.718 Personal history of other venous thrombosis and embolism; Z95.5 Presence of coronary angioplasty implant and graft; Z85.828 Personal history of other malignant neoplasm of skin; Z90.49 Acquired absence of other specified parts of digestive tract; Z96.643 Presence of artificial hip joint, bilateral; Z96.653 Presence of artificial knee joint, bilateral; Z79.82 Long term (current) use of aspirin; Z79.899 Other long term (current) drug therapy; Z88.0 Allergy status to penicillin; Z88.2 Allergy status to sulfonamides; Z88.7 Allergy status to serum and vaccine; Z88.8 Allergy status to other drugs, medicaments and biological substances